=== PATIENT | female | born 1960 | race Caucasian/White ===

== ENCOUNTER → 2016-04-15 | Outpatient (CLI) | payer BC | END | disposition home or self-care (01) | LOC: C.RDSM 14:43 | PROVIDERS: ATTEND Family Medicine Sports Medicine | DX: R20.0 Anesthesia of skin (principal) ==

== ENCOUNTER → 2016-04-21 | Outpatient (CLI) | payer BC | END | disposition home or self-care (01) | LOC: C.PAPS 09:10 | PROVIDERS: ATTEND Obstetrics & Gynecology | DX: Z01.419 Encounter for gynecological examination (general) (routine) without abnormal findings (principal) ==

== ENCOUNTER → 2016-04-21 | Outpatient (CLI) | payer BC ==
--- NOTE | 2016-04-21 14:26 | MAMMOGRAPHY REPORT ---
BILATERAL DIGITAL SCREENING MAMMOGRAM TOMOSYNTHESIS WITH CAD: 04/21/2016 CLINICAL HISTORY: Routine screening. Patient has no complaints. TECHNIQUE: Bilateral breast tomosynthesis in addition to standard 2D mammography was performed. Curr ent study was also evaluated with a Computer Aided Detection (CAD) system. COMPARISON: Comparison is made to exams dated: 03/18/2015 mammogram, 01/28/2010 mammogram - [facility], 12/26/2006, and 07/11/2007. BREAST COMPOSITION: There are scattered areas of fibroglandular density in both breasts. FINDINGS: There is a newly visualized 4.1 mm circumscribed mass in the superior posterior right jeovany ast, only seen on the MLO view and corresponding tomosynthesis images. Although this could represen t a cyst, definitive characterization with exaggerated lateral CC views, possible spot compression v iews and possible ultrasound are recommended. No other suspicious mass, architectural distortion or cluster of microcalcifications is seen bilater ally. IMPRESSION: ACR BI-RADS CATEGORY 0: INCOMPLETE EVALUATION: NEED ADDITIONAL IMAGING EVALUATION The newly visualized 4.1 mm mass in the right superior, posterior breast needs additional evaluation . The patient will be called to schedule an appointment. Approximately 10% of breast cancers are not detected with mammography. A negative mammographic repor t should not delay biopsy if a clinically suggestive mass is present. Keisha Guy M.D. ay/:04/21/2016 10:03:04 Stock Broker Supervisor: Lucho MELCHOR(Peg)(Harry), [facility] letter sent: Addl Imaging 0 BI-RADS Code: ACR BI-RADS Category 0: Incomplete Evaluation: Need Additional Imaging Evaluation
== END | disposition home or self-care (01) ==
LOC: C.MAMM 09:23
PROVIDERS: ATTEND Family Medicine
DX: Z12.31 Encounter for screening mammogram for malignant neoplasm of breast (principal); N63 Unspecified lump in breast

== ENCOUNTER → 2016-04-21 | Outpatient (CLI) | payer BC ==
--- NOTE | 2016-04-21 09:47 | DIAGNOSTIC IMAGING REPORT ---
CERVICAL SPINE MRI HISTORY: Pain. Radiculopathy. M47.812,M54.12 TECHNIQUE: Multiplanar multisequence MRI of the cervical spine was performed without the use of contrast. COMPARISON STUDY: 08/13/2005 FINDINGS: Moderate degenerative disc change throughout the entire cervical region. Signal characteristics of the vertebral bodies are unremarkable. Mild reversal of normal cervical curvature. C2-C3: No significant central canal or neural foraminal narrowing. C3-C4: No significant central canal or neural foraminal narrowing. C4-C5: No significant central canal or neural foraminal narrowing. C5-C6: Minimal disc bulge C6-C7: Mild broad-based disc herniation. Mild impact anterior cervical cord. Mild narrowing neuroforamina bilaterally C7-T1: No significant central canal or neural foraminal narrowing. IMPRESSION: 1. Mild broad-based disc herniation C6-C7. 2. Minimal disc bulge C5-C6. Electronically signed by: Vern Guerrero M.D. 04/21/2016 9:46 AM Dictated Date/Time: 04/21/2016 9:14 AM
== END | disposition home or self-care (01) ==
LOC: C.MRI 08:24
PROVIDERS: ATTEND Family Medicine Sports Medicine
DX: M47.22 Other spondylosis with radiculopathy, cervical region (principal)

== ENCOUNTER → 2016-04-29 | Outpatient (CLI) | payer BC ==
--- NOTE | 2016-04-29 12:48 | MAMMOGRAPHY REPORT ---
UNILATERAL RIGHT DIGITAL DIAGNOSTIC MAMMOGRAM TOMOSYNTHESIS AND TARGETED RIGHT ULTRASOUND: 04/29/2016 CLINICAL HISTORY: Callback from screening mammogram for right breast mass. TECHNIQUE: Breast tomosynthesis in addition to standard 2D mammography was performed. Spot tyrel bebeto right MLO 2-D and tomosynthesis images and right X CCL views were obtained. COMPARISON: Comparison is made to exams dated: 04/21/2016 mammogram, 01/28/2010 mammogram, 03/18/2015 mammogram - [facility], and 12/26/2006. BREAST COMPOSITION: There are scattered areas of fibroglandular density in the right breast. FINDINGS: Spot compression views demonstrate a persistent round 4 mm mass in the right upper outer quadrant far posteriorly, which has obscured margins on the current exam but did have circumscribed margins on the screening mammogram. Targeted ultrasound was performed of the right upper outer quadrant in the region of the mammographi c mass. In the right breast at 9:30, 7 cm from the nipple, there is a round circumscribed hypoechoi c mass with posterior acoustic enhancement which measures 3 x 3 x 3 mm. This corresponds with the m ammographic mass and is probably benign and likely represents a cyst. The mass is likely not comple tely anechoic due to the far posterior location. IMPRESSION: ACR-BI-RADS CATEGORY 3: PROBABLY BENIGN, TARGETED ULTRASOUND ACR-BI-RADS CATEGORY 3: IN OBABLY BENIGN Hypoechoic 3 mm mass in the right breast at 9:30 on ultrasound, which corresponds with the mammograp hic mass and is probably benign and likely represents a cyst. Recommend follow-up diagnostic tomosy nthesis mammograms and possible ultrasound of the right breast in 6 months to confirm stability. The patient has been verbally notified of the results. Approximately 10% of breast cancers are not detected with mammography. A negative mammographic repor t should not delay biopsy if a clinically suggestive mass is present. Farheen Farley M.D. /:04/29/2016 08:44:11 Night Warehouse Selector: Lucho ANDERSON)(Harry), [facility] letter sent: Follow Up Recommended 3 BI-RADS Code: ACR-BI-RADS Category 3: Probably Benign Ultrasound BI-RADS: ACR-BI-RADS Category 3: P robably Benign
== END | disposition home or self-care (01) ==
LOC: C.MAMM 07:55
PROVIDERS: ATTEND Family Medicine
DX: N63 Unspecified lump in breast (principal)

== ENCOUNTER → 2016-10-28 | Outpatient (CLI) | payer BC ==
--- NOTE | 2016-10-28 12:38 | MAMMOGRAPHY REPORT ---
UNILATERAL RIGHT DIGITAL DIAGNOSTIC MAMMOGRAM TOMOSYNTHESIS WITH CAD AND TARGETED RIGHT ULTRASOUND: CLINICAL HISTORY: 6 Month Follow-up Right. TECHNIQUE: Breast tomosynthesis in addition to standard 2D mammography was performed. Current study was also evaluated with a Computer Aided Detection (CAD) system. Right CC and MLO 2-D and tomosynthe sis images and right X CCL tomosynthesis images were obtained. COMPARISON: Comparison is made to exams dated: 04/29/2016 ultrasound, 04/29/2016 mammogram, 04/21/2016 mammogram, 03/18/2015 mammogram, 01/28/2010 mammogram - [facility], and 07/11/2007. BREAST COMPOSITION: The tissue of the right breast is heterogeneously dense, which may obscure small masses. FINDINGS: Again noted is a low density partially circumscribed and partially obscured 5 mm mass in t he right upper outer quadrant, best seen on the tomosynthesis images. The mass does not appear signi ficantly changed compared to the April 2016 exam. The remainder of the right breast is stable mammog raphically compared to prior exams, without suspicious masses, calcifications, or areas of architectu ral distortion noted. Targeted ultrasound was performed of the area of the previously seen mass. In the right breast at 9: 30, approximately 7 cm from the nipple, again noted is a circumscribed hypoechoic mass which measures 2 x 4 x 3 mm, not significantly changed compared to the April 2016 exam when accounting for slight d ifferences in measurement technique, previously measuring 3 x 3 x 3 mm. This is felt to correspond w ith the stable mammographic mass and is probably benign and likely represents a cyst. IMPRESSION: ACR-BI-RADS CATEGORY 3: PROBABLY BENIGN, TARGETED ULTRASOUND ACR-BI-RADS CATEGORY 3: PRO BABLY BENIGN Hypoechoic 4 mm mass in the right 9:30 breast is stable compared to the April 2016 exam and is probab ly benign and may represent a cyst. Recommend bilateral diagnostic tomosynthesis mammograms in 6 mon ths, to reevaluate the right breast mass and for routine mammography of the left breast. The patient has been verbally notified of the results. Approximately 10% of breast cancers are not detected with mammography. A negative mammographic report should not delay biopsy if a clinically suggestive mass is present. Farheen Farley M.D. ah/:10/28/2016 10:11:25 Market Master: Nessa Villarreal RT(R)(M), [facility] letter sent: Follow Up Recommended 3 BI-RADS Code: ACR-BI-RADS Category 3: Probably Benign Ultrasound BI-RADS: ACR-BI-RADS Category 3: Pr obably Benign
== END | disposition home or self-care (01) ==
LOC: C.MAMM 08:30
PROVIDERS: ATTEND Family Medicine
DX: N63 Unspecified lump in breast (principal)

== ENCOUNTER → 2017-04-28 | Outpatient (CLI) | payer OTHER ==
--- NOTE | 2017-04-28 15:09 | MAMMOGRAPHY REPORT ---
BILATERAL DIGITAL DIAGNOSTIC MAMMOGRAM TOMOSYNTHESIS WITH CAD: 04/28/2017 CLINICAL HISTORY: Short interval follow-up of right breast mass. The patient reports no palpable lum ps or other complaints. TECHNIQUE: Breast tomosynthesis in addition to standard 2D mammography was performed. Current study was also evaluated with a Computer Aided Detection (CAD) system. Bilateral CC and MLO 2D and tomosyn thesis images and RXCCL 2D image were obtained. COMPARISON: Comparison is made to exams dated: 10/28/2016 ultrasound, 10/28/2016 mammogram, 04/29/2016 ultrasound, 04/29/2016 mammogram, 04/21/2016 mammogram, and 03/18/2015 mammogram - [facility]. BREAST COMPOSITION: There are scattered areas of fibroglandular density in both breasts. FINDINGS: Again noted is a small round partially circumscribed and partially obscured 5 mm mass withi n the right upper outer quadrant posteriorly, best seen on the tomosynthesis images. The mass is sta ble in size and appearance dating back to the April 2016 exam. This corresponds with a cystic-appear ing circumscribed mass seen on prior ultrasound exams. Given the long-term stability and benign morp hology, the mass is considered benign and likely represents a small cyst. The remainder of both breasts are stable compared to prior exams, without suspicious masses, calcific ations, or areas of architectural distortion noted. IMPRESSION: ACR BI-RADS CATEGORY 2: BENIGN The benign-appearing 5 mm mass within the right upper outer quadrant is stable mammographically datin g back to the April 2016 exam, and is considered benign given the morphology and stability and likely represents a small cyst. There is no mammographic evidence of malignancy in either breast. A 1 year screening mammogram is recommended. The patient has been verbally notified of the results. Approximately 10% of breast cancers are not detected with mammography. A negative mammographic report should not delay biopsy if a clinically suggestive mass is present. Farheen Farley M.D. /:04/28/2017 10:11:45 Continuous Improvement Black Belt: Lucho ANDERSON)(Harry), [facility] letter sent: Normal 1/2 BI-RADS Code: ACR BI-RADS Category 2: Benign
== END | disposition home or self-care (01) ==
LOC: C.MAMM 09:25
PROVIDERS: ATTEND Obstetrics & Gynecology
DX: N63.11 Unspecified lump in the right breast, upper outer quadrant (principal)

== ENCOUNTER 2017-06-09 14:16 | Emergency (ER) | payer OTHER ==
[~2017-06-09] VITALS: Ht 149.9 cm; Wt 72.5 kg
[2017-06-09 14:18] VITALS: TEMP 36.7; Ht 149.9 cm; Wt 72.5 kg
[2017-06-09] MEDS ORDERED: RABIES IMMUNE GLOBULIN (HUMAN) 150 INTER.UNIT/ML 2 ML VIAL IM. ONE (14:45)
[2017-06-09] MEDS ORDERED: RABIES VACCINE (IMOVAX) HUMAN DIPL CELL 2.5 INTER.UNIT/ML SYR IM. ONE (14:45)
[2017-06-09] MEDS ORDERED: ASCO10003 PO (15:01)
[2017-06-09] MEDS ORDERED: OMEG5CAP PO (15:01)
[2017-06-09] MEDS ORDERED: MAGN500T15 PO (15:02)
[2017-06-09] MEDS ORDERED: MULT-506 PO (15:04)
[2017-06-09] MEDS ORDERED: ASPI81TA28 PO (15:04)
[2017-06-09] MEDS ORDERED: NAPR-1169 PO (15:04)
[2017-06-09] MEDS ORDERED: FERR50TA3 PO (15:04)
[2017-06-09] MEDS ORDERED: CYAN10005 PO (15:04)
[2017-06-09 15:44] VITALS: BP 128/74; PULSE 62; O2SAT 98
--- NOTE | 2017-06-10 11:09 | EMERGENCY ROOM VISIT NOTE ---
ED Visit Note First contact with patient: 14:32 Chief Complaint: Squirrel bite. History of Present Illness: Ms. Ramirez is a 57-year-old white female who ambulates into the ED accompanied by her sister complaining of a squirrel bite to the tip of the left middle finger. Patient reports yesterday, approximately 24 hours ago, she was assisting a squirrel by attempting to remove it from a trap and was bit on the tip of the left middle finger. She reports he cleansed the wound yesterday with soap and water. Today was recommended that she come the emergency department for further evaluation and care. She is asymptomatic. She denies any pain in the finger. Review of Systems: As noted above in history of present illness. Past Medical History: Rheumatoid arthritis, status post bunionectomy and trigger finger releases. Current Medications: Medications Dose Route/Sig Max Daily Dose Days Date Category Naprosyn (Naproxen) 500 Mg Tab 500 Tab PO BID 06/09/17 Reported Vitamin B-12 (Cyanocobalamin) 1,000 Mcg Tab 1,000 Mcg PO DAILY 06/09/17 Reported Aspirin Ec (Aspirin) 81 Mg Tab 81 Mg PO DAILY 06/09/17 Reported Multivitamin (Multivitamins) Tab 1 Tab PO DAILY 06/09/17 Reported Iron (Ferrous Sulfate) (Ferrous Sulfate) 50 Mg Tab 1 Tab PO DAILY 06/09/17 Reported Magnesium 500 Mg Tab 1 Cap PO DAILY 06/09/17 Reported Vitamin C (Ascorbic Acid) 1,000 Mg Tab 1 Cap PO DAILY 06/09/17 Reported Fish Oil 1200 mg ([place]-3 Fatty Acids) 1 Cap Cap 1 Cap PO DAILY 06/09/17 Reported Allergies to Medications: Patient denies. Social History: Patient is currently employed; she feels safe in her home environment; she denies tobacco use and admits to alcohol use. Tetanus Immunization Status: Patient reports up-to-date. Physical Examination: Vital Signs: Date Time Temp Pulse Resp B/P (MAP) Pulse Ox O2 Delivery O2 Flow Rate FiO2 06/09/17 15:44 62 17 128/74 98 06/09/17 14:18 36.7 82 18 127/63 95 Room Air GENERAL: 57-year-old female in no acute distress, nontoxic-appearing, afebrile and hemodynamically stable. NEUROLOGICAL: Awake, alert and oriented to person, place and time. Answering questions appropriately and following commands. Normal gait. Good hand eye coordination. No focal motor or sensory deficits. SKIN: Warm, dry and pink. Left Middle Finger: Small bite noted over the tip of the index finger. No active bleeding. No signs of infection. LEFT MIDDLE FINGER: Soft tissue injury as noted above. Patient does have arthritic changes consistent with rheumatoid arthritis at the MCP and the PIP joints. There is no gross bony deformity. She is able to flex and extend all joints. Throughout the finger the skin was warm and pink and capillary refill was brisk. She is able to distinguish light sensations to all dermatomes. ED Course: Patient is assessed as noted above. Patient's medication list was reviewed. Patient was given 1450 units of rabies immunoglobulin IM and 2.5 units of rabies immunization IM. Patient was observed and had no reactions to the medications. Patient was educated about today's findings and instructed on her treatment plan ; she verbalized understanding and agreement with this plan. Clinical Impression: Squirrel bite. His rabies immunizations. Disposition: Patient discharged home in stable condition accompanied by her sister; prior to departure she was reassessed and subjectively reported she was feeling well and had no complaints. Plan: Patient was educated on signs of rabies and symptoms related to reactions or allergic reactions to immunoglobulin and immunization to rabies. Patient was encouraged to return on day 3, 7 and 14 for additional immunizations. Patient was encouraged to use simple therapies for mild symptoms. Patient was encouraged to return to the ED for any significant allergic reactions or moderate relaxants related to her immunizations or any new/ concerning symptoms
== END 2017-06-09 15:47 | disposition home or self-care (01) ==
LOC: C.EDB 14:17 → C.EDD 15:47
DX: S61.253A Open bite of left middle finger without damage to nail, initial encounter (principal); W53.21XA Bitten by squirrel, initial encounter; M06.9 Rheumatoid arthritis, unspecified; Z79.82 Long term (current) use of aspirin; Z79.899 Other long term (current) drug therapy

== ENCOUNTER 2017-06-12 09:52 | Emergency (ER) | payer OTHER ==
[~2017-06-12] VITALS: Ht 152.4 cm; Wt 72.4 kg
[~2017-06-12 09:52] MED LIST: ASCO10003 PO; ASPI81TA28 PO; CYAN10005 PO; FERR50TA3 PO; MAGN500T15 PO; MULT-506 PO; NAPR-1169 PO; OMEG5CAP PO
[2017-06-12 09:54] VITALS: TEMP 36.6; Ht 152.4 cm; Wt 72.4 kg
[2017-06-12] MEDS ORDERED: RABIES VACCINE (IMOVAX) HUMAN DIPL CELL 2.5 INTER.UNIT/ML SYR IM. ONE (10:15)
[2017-06-12 10:37] VITALS: BP 140/80; PULSE 75; O2SAT 97
--- NOTE | 2017-06-12 16:19 | EMERGENCY ROOM VISIT NOTE ---
History Report prepared by Danis: Ashley Campbell Under the Supervision of: Dr. Antonio Vinson M.D. First contact with patient: 10:00 Chief Complaint: RABIES VACCINE REPEAT VISIT Stated Complaint: 2ND RABIES SHOT History of Present Illness The patient is a 57 year old female who presents to the Emergency Room for her 2nd rabies vaccine. The patient received her first rabies vaccine 2 days ago after being "nipped" by a squirrel while trying to free it from a glue trap. She has returned for her 2nd shot as directed. She has no complaints. Source of History: patient Onset: 2 days ago Quality: other (rabies vaccine) Timing: other (episodic) Review of Systems See HPI for pertinent positives & negatives. A total of 2 systems reviewed and were otherwise negative. Past Medical & Surgical Medical Problems: (1) Rheumatoid arthritis Family History Cancer Diabetes mellitus Heart disease Hypertension Social History Smoking Status: Never Smoker Alcohol Use: occasionally Housing Status: lives alone Occupation Status: employed Current/Historical Medications Scheduled Ascorbic Acid (Vitamin C), 1 CAP PO DAILY Aspirin (Aspirin Ec), 81 MG PO DAILY Cyanocobalamin (Vitamin B-12), 1,000 MCG PO DAILY Ferrous Sulfate (Iron (Ferrous Sulfate)), 1 TAB PO DAILY Magnesium (Magnesium), 1 CAP PO DAILY Multivitamin (Multivitamin), 1 TAB PO DAILY Naproxen (Naprosyn), 500 TAB PO BID [place]-3 Fatty Acids (Fish Oil 1200 mg), 1 CAP PO DAILY Allergies Coded Allergies: No Known Allergies (Unverified , 06/12/17) Physical Exam Vital Signs Date Time Temp Pulse Resp B/P (MAP) Pulse Ox O2 Delivery O2 Flow Rate FiO2 06/12/17 10:37 75 18 140/80 97 06/12/17 09:54 36.6 76 18 136/69 97 Room Air Physical Exam Constitutional: Vital signs reviewed. Musculoskeletal: Tiny puncture wound on the dorsal aspect of the left 3rd digit proximal to the nail without signs of infection. Integumentary: No cellulitis or discharge. Psychiatric: Normal affect. Medical Decision & Procedures Laboratory Results Test 06/12/17 10:15 Bedside Troponin I < 0.030 ng/ml (0-0.045) Laboratory results as reviewed by me. Medications Administered Medications (Trade) Dose Ordered Sig/Benedict Route Start Time Stop Time Status Last Admin Dose Admin Rabies Vaccine Human Diploid Cell (Imovax Rabies) 2.5 interunit ONCE ONCE IM. 06/12/17 10:15 06/12/17 10:16 DC 06/12/17 10:28 2.5 INTERUNIT ED Course 1004: The patient was evaluated in room B3B. A complete history and physical exam was performed. 1010: I reevaluated the patient. Initially, the patient did not necessarily want another vaccine. I reviewed the CDC recommendations and she changed her mind and decided she would continue the series. She verbalized agreement of the treatment plan. She was discharged home. 1015: Imovax Rabies 2.5 interunit IM. Medical Decision This is a 57-year-old female presents for her second rabies vaccination. I did perform a limited focused review of portions of the patient's old chart on the electronic medical record. The patient was seen here on the 3rd after a squirrel bite to the left middle finger. She received rabies immunoglobulin and Imovax. I did evaluate the patient as noted above. Patient was bitten by a squirrel while removing it from a glue trap. It did not display any unusual behavior. Per CDC guidelines rodents such as squirrels are not generally considered active reservoirs for rabies and there have been no reported squirrels to humans. The patient did, however, wish to continue the rabies vaccination process. She was given a Pneumovax here and discharged in good condition. She will return as scheduled for the complete series. Medication Reconcilliation Current Medication List: was personally reviewed by me Blood Pressure Screening Patient's blood pressure: Elevated blood pressure Blood pressure disposition: Elevated BP felt to be situational Impression Primary Impression: Encounter for repeat administration of rabies vaccination Scribe Attestation The scribe's documentation has been prepared under my direct and personally reviewed by me in its entirety. I confirm that the note above accurately reflects all work, treatment, procedures, and medical decision making performed by me. Departure Information Dispostion Home / Self-Care Referrals Rey Tao M.D.(TABITHA) (PCP) Forms HOME CARE DOCUMENTATION FORM, IMPORTANT VISIT INFORMATION, WORK / SCHOOL INSTRUCTIONS Patient Instructions My [facility], Rabies Vaccine suspension for injection Additional Instructions Follow-up with your doctor. Return as scheduled for your other vaccinations on days 7 and 14. Today is day 3.
== END 2017-06-12 10:47 | disposition home or self-care (01) ==
LOC: C.EDB 09:53
DX: Z23 Encounter for immunization (principal); Z20.3 Contact with and (suspected) exposure to rabies

== ENCOUNTER 2017-06-16 08:57 | Emergency (ER) | payer OTHER ==
[~2017-06-16] VITALS: Ht 152.4 cm; Wt 72.5 kg
[2017-06-16 09:02] VITALS: BP 122/66; PULSE 77; TEMP 36.7; O2SAT 97; Ht 152.4 cm; Wt 72.5 kg
[2017-06-16] MEDS ORDERED: GLUCCAP31 PO (09:11)
[2017-06-16] MEDS ORDERED: B-COTAB18 PO (09:11)
[2017-06-16] MEDS ORDERED: RABIES VACCINE (IMOVAX) HUMAN DIPL CELL 2.5 INTER.UNIT/ML SYR IM. ONE (09:15)
--- NOTE | 2017-06-16 09:28 | EMERGENCY ROOM VISIT NOTE ---
ED Visit Note First contact with patient: 09:05 CHIEF COMPLAINT: Rabies prophylaxis HISTORY OF PRESENT ILLNESS: This 57 y/o patient presents to the emergency department for their third rabies shot. The patient has not had any complications from the previous injections. They deny any other complaints. The patient wants me to be aware that she does not need rabies vaccination series for a squirrel bite. I concurred with her. She does wish to finish the vaccination series. REVIEW OF SYSTEMS: A 6 system review of systems was completed with positives and pertinent negatives listed in the HPI. ALLERGIES: NKDA MEDICATIONS: See nursing notes PMH: Unchanged from previous visit. PHYSICAL EXAM: Vital Signs: Reviewed Nurse's notes, vital signs stable. GENERAL : 57 y/o, in no acute distress, well-developed, well-nourished. HEAD: Atraumatic, without temporal or scalp tenderness. EYES: PERRLA, EOMI, no discharge or injection. SKIN: Normal. NEUROLOGICAL: Alert and cooperative. Sensory and motor functions grossly intact. EMERGENCY DEPARTMENT COURSE: I examined the patient. The patient was given Imovax 1ml IM. The patient was observed for 20 minutes with no reaction. The patient was discharged home in stable condition. DIAGNOSIS: Rabies prophylaxis DISCHARGE INSTRUCTIONS: Continue vaccination schedule as directed. Return for any complications. Problem List Medical Problems: (1) Rheumatoid arthritis Status: Chronic Current/Historical Medications Scheduled Ascorbic Acid (Vitamin C), 1 CAP PO DAILY Aspirin (Aspirin Ec), 81 MG PO DAILY B-Complex Vitamins (Vitamin B Complex), 1 TAB PO DAILY Ferrous Sulfate (Iron (Ferrous Sulfate)), 1 TAB PO DAILY Glucosamine Sulfate-Methylsulf (Msm/Glucosamine), 1 CAP PO BID Magnesium (Magnesium), 1 CAP PO DAILY Multivitamin (Multivitamin), 1 TAB PO DAILY Naproxen (Naprosyn), 500 TAB PO BID [place]-3 Fatty Acids (Fish Oil 1200 mg), 1 CAP PO DAILY Allergies Coded Allergies: No Known Allergies (Unverified , 06/16/17) Vital Signs Date Time Temp Pulse Resp B/P (MAP) Pulse Ox O2 Delivery O2 Flow Rate FiO2 06/16/17 09:02 36.7 77 18 122/66 97 Room Air Medications Administered Medications (Trade) Dose Ordered Sig/Benedict Route Start Time Stop Time Status Last Admin Dose Admin Rabies Vaccine Human Diploid Cell (Imovax Rabies) 2.5 interunit ONCE ONCE IM. 06/16/17 09:15 06/16/17 09:16 DC 06/16/17 09:17 2.5 INTERUNIT Departure Information Impression Primary Impression: Encounter for repeat administration of rabies vaccination Dispostion Home / Self-Care Condition GOOD Referrals Rey Tao M.D.(TABITHA) (PCP) Forms WORK / SCHOOL INSTRUCTIONS, HOME CARE DOCUMENTATION FORM, IMPORTANT VISIT INFORMATION Patient Instructions My [facility] Additional Instructions Return in one week for rabies You have been examined and treated today on an emergency basis only. This is not a substitute for, or an effort to provide, complete comprehensive medical care. It is impossible to recognize and treat all injuries or illnesses in a single emergency department visit. It is therefore important that you follow up closely with Dr Tao. Call as soon as possible for an appointment. Thank you for your time and consideration. I look forward to speaking with you again soon. Please don't hesitate to call us if you have any questions.
== END 2017-06-16 09:38 | disposition home or self-care (01) ==
LOC: C.EDB 08:58 → C.EDA 09:38
DX: Z20.3 Contact with and (suspected) exposure to rabies (principal); Z23 Encounter for immunization; M06.9 Rheumatoid arthritis, unspecified; Z79.82 Long term (current) use of aspirin; Z79.899 Other long term (current) drug therapy

== ENCOUNTER 2017-06-23 08:59 | Emergency (ER) | payer OTHER ==
[~2017-06-23] VITALS: Ht 149.9 cm; Wt 71.7 kg
[~2017-06-23 08:59] MED LIST changes: +B-COTAB18 PO; -CYAN10005 PO; +GLUCCAP31 PO
[2017-06-23 09:09] VITALS: BP 131/72; PULSE 90; TEMP 36.7; O2SAT 98; Ht 149.9 cm; Wt 71.7 kg
[2017-06-23] MEDS ORDERED: RABIES VACCINE (IMOVAX) HUMAN DIPL CELL 2.5 INTER.UNIT/ML SYR IM. ONE (09:30)
--- NOTE | 2017-06-23 15:15 | EMERGENCY ROOM VISIT NOTE ---
History First contact with patient: :16 Chief Complaint: RABIES VACCINE REPEAT VISIT Stated Complaint: LAST OF RABIES SHOTS History of Present Illness The patient is a 57 year old female who presents to the Emergency Room for her final Imovax injection. The patient was bitten on the left third finger by a squirrel. She denies any wound complications or adverse side effects from her previous injections. Review of Systems 6 system review was performed and was negative except for pertinent positives and negatives as indicated in history of present illness Past Medical/Surgical History Medical Problems: (1) Rheumatoid arthritis Family History Cancer Diabetes mellitus Heart disease Hypertension Social History Smoking Status: Never Smoker Alcohol Use: occasionally Housing Status: lives alone Occupation Status: employed Current/Historical Medications Scheduled Ascorbic Acid (Vitamin C), 1 CAP PO DAILY Aspirin (Aspirin Ec), 81 MG PO DAILY B-Complex Vitamins (Vitamin B Complex), 1 TAB PO DAILY Ferrous Sulfate (Iron (Ferrous Sulfate)), 1 TAB PO DAILY Glucosamine Sulfate-Methylsulf (Msm/Glucosamine), 1 CAP PO BID Magnesium (Magnesium), 1 CAP PO DAILY Multivitamin (Multivitamin), 1 TAB PO DAILY Naproxen (Naprosyn), 500 TAB PO BID Chili-3 Fatty Acids (Fish Oil 1200 mg), 1 CAP PO DAILY Physical Exam Vital Signs Date Time Temp Pulse Resp B/P (MAP) Pulse Ox O2 Delivery O2 Flow Rate FiO2 06/23/17 09:09 36.7 90 20 131/72 98 Room Air Physical Exam CONSTITUTIONAL: Healthy and well nourished. HEENT: Normocephalic, atraumatic. Pupils equal, round and reactive. NECK: Full active range of motion without discomfort. MUSCULOSKELETAL: Examination of the left third fingertip shows a well-healing injury without erythema, fluctuance or ecchymosis. INTEGUMENTARY: No rash or other significant dermatologic conditions noted. NEUROLOGIC: Left third fingertip is sensory intact. Medical Decision & Procedures Medications Administered Medications (Trade) Dose Ordered Sig/Benedict Route Start Time Stop Time Status Last Admin Dose Admin Rabies Vaccine Human Diploid Cell (Imovax Rabies) 2.5 interunit ONCE ONCE IM. 06/23/17 09:30 06/23/17 09:31 DC 06/23/17 09:51 2.5 INTERUNIT ED Course Patient history and physical exam were performed. Nurse's notes were reviewed. Vital signs were reviewed and were normal. The patient received Imovax without adverse reaction. The patient was advised that if she has any potential rabies exposure in the future, she should advise her health care provider that she has already undergone this immunization series. The patient was happy with plan of care, and denied any discomfort at the time of discharge. Medical Decision Medication Reconcilliation Current Medication List: was personally reviewed by me Blood Pressure Screening Patient's blood pressure: Normal blood pressure Impression Primary Impression: Rabies, need for prophylactic vaccination against Departure Information Dispostion Home / Self-Care Condition FAIR Forms HOME CARE DOCUMENTATION FORM, IMPORTANT VISIT INFORMATION Patient Instructions My [facility] Additional Instructions If you have any potential rabies exposure in the future, advise your healthcare provider that you have already undergone this immunization series. You have received the human rabies immunoglobulin (HRIG) which is based on weight (given on the initial day), and Imovax immunization (given at all visits) .
== END 2017-06-23 10:06 | disposition home or self-care (01) ==
LOC: C.EDB 09:00
DX: Z20.3 Contact with and (suspected) exposure to rabies (principal); Z23 Encounter for immunization; M06.9 Rheumatoid arthritis, unspecified; Z79.82 Long term (current) use of aspirin; Z79.899 Other long term (current) drug therapy

== ENCOUNTER 2023-02-03 12:03 | Observation (INO) ==
--- NOTE | 2023-02-02 07:46 | History & Physical Report ---
Date of Service February 02, 2023 Assessment & Plan (1) Closed right humeral fracture: We will proceed with an open reduction internal fixation of the right humerus. Postoperatively she will be placed in a sling and kept overnight in the hospital for postop medical management. She will likely be discharged to home the following day. History of Present Illness Chief Complaint: Right humeral shaft fracture. Primary Care Provider: Christiano Allen DO Arenas is a pleasant 62-year-old female who I did a right shoulder arthroscopy on in the past. She is doing well with that. Unfortunately she tripped and fell on January 29, 2023. She fell directly onto her right shoulder. She was having severe right shoulder pain. She went to the emergency room and radiographs demonstrated a right humeral shaft fracture. She was placed in a sling and sent to their office. After discussions in the office, she has elected to proceed with an open reduction internal fixation of the right humeral shaft. Allergies Allergy/AdvReac Type Severity Reaction Status Date / Time No Known Allergies Allergy Verified 02/01/23 15:14 Home Medications Medication Instructions Recorded Confirmed Type Lactobacillus acidophilus 10 10,000 mmu cells PO QAM 01/26/21 02/01/23 History billion cell capsule (Probiotic) cholecalciferol (vitamin D3) 50 50 mcg PO QAM 01/26/21 02/01/23 History mcg (2,000 unit) tablet (Vitamin D3) folic acid 1 mg tablet 2 mg PO QAM 01/26/21 02/01/23 History hydroxychloroquine 200 mg tablet 200 mg PO QAM 01/26/21 02/01/23 History (Plaquenil) metformin 500 mg tablet 500 mg PO QAM 01/26/21 02/01/23 History tofacitinib 11 mg tablet,extended 11 mg PO QAM 01/26/21 02/01/23 History release 24 hr (Xeljanz XR) turmeric 400 mg capsule 400 mg PO QAM 01/26/21 02/01/23 History vitamin B complex 1 tab PO QAM 01/26/21 02/01/23 History vitamin E 200 unit tablet 200 mg PO HS 01/26/21 02/01/23 History zinc 50 mg capsule 50 mg PO QAM 01/26/21 02/01/23 History magnesium 1 mg PO QAM 11/24/22 02/01/23 History oxycodone 5 mg tablet 5 mg PO Q4H PRN pain #15 tabs 01/30/23 02/01/23 Rx ascorbic acid (vitamin C) 1,000 mg 1 g PO Q6H 02/01/23 02/01/23 History tablet (Vitamin C) bupropion HCl 100 mg tablet 100 mg PO QAM 02/01/23 02/01/23 History ferrous sulfate 325 mg (65 mg 325 mg PO UD 02/01/23 02/01/23 History iron) tablet (Iron (ferrous sulfate)) milk thistle 150 mg capsule 150 mg PO QAM 02/01/23 02/01/23 History omega-3 fatty acids 1,000 mg PO DAILY 02/01/23 02/01/23 History oxycodone 5 mg tablet 5 mg PO Q6 PRN pain #10 tabs 02/01/23 02/01/23 Rx Past Med/Surg History Medical History Prediabetes on metformin Postmenopausal Restless leg syndrome Rheumatoid arthritis Surgical History H/O shoulder surgery Family history of reaction to anesthesia BROTHER>SLEEP APNEA>NEEDED "REVIVED" H/O hand surgery LEFT HAND TENDON REPAIR H/O foot surgery X 3 (BUNION REPAIRS) History of colonoscopy History of conization of cervix [place] teeth removed Family History Father Family history of diabetes mellitus Family history of esophageal cancer Mother COPD (chronic obstructive pulmonary disease) Atrial fibrillation Denies family history of Ovarian cancer Breast cancer Colorectal cancer Social History Smoking Status: Former smoker Tobacco Type: Cigarettes Smoking End Date: 09/06/2022; Second Hand Exposure: No; Do You Dip or Chew Tobacco: No; Tobacco Cessation Education Requested by Patient: No Hx Alcohol Use: Yes Hx Substance Use: No Preferred Language: Slovak Communication Ability: Effective Keyboard Action Assembler Required: No Beliefs That Will Affect Care: None Current Living Situation: Alone Other Information That Helps Us Care for You: No Feels Safe at Home: Yes Safety Concerns: Feels Safe At This Time Assistive Devices: Glasses Review of Systems All systems reviewed & are unremarkable except as noted in HPI & below. Physical Exam On physical examination of the right arm, she is in a coaptation splint. She has motion of her hand and her wrist. She does have some shooting pains into her hand but no numbness. I am unable to do any range of motion testing with her upper extremity.. Constitutional WD/WN, vitals as above Eyes PERRL, conjunctivae normal, anicteric sclerae ENMT external ear and nose normal, oropharynx normal Neck trachea midline, no thyromegaly Respiratory normal respiratory effort Cardiovascular RRR, no murmur, no edema Gastrointestinal (Abdomen) normal bowel sounds, soft, nontender, no hepatosplenomegaly Psychiatric A+Ox3, euthymic affect Results & Data Results & Data Laboratory Results . Diagnostic Findings X-rays of the right shoulder show a transverse fracture of the upper third of the humeral shaft. It does splinter and extended proximally towards the tuberosity.. PG Care Time/CCT Total # of Minutes Spent Total Time Spent with Patient: Total time spent is greater than 50% in coordination of care (as documented) at patient's floor/unit and/or counseling patient: Coding Level of Care Code None Diagnoses Closed right humeral fracture S42.301A
--- NOTE | 2023-02-02 10:51 | Anesthesiology Consultation ---
Date of Service February 02, 2023 Assessment & Plan (1) Encounter for pre-operative examination: Plan - check BSG, CBC with diff, CMP, coags, EKG and CXR STAT am DOS. - Pre-op testing not completed, plan to complete DOS. Per Stormy with surgeon's office, CBC, CMP, coags and EKG are needed from surgical standpoint. Will obtain CBC with diff and CXR from anesthesia standpoint. - ER [facility] 01/29/23: "...stumbled and fell, striking her right shoulder on the wall and then landing on the medial aspect of her left hand and right shoulder on the ground. She states she also struck the right cheek on the concrete, but denies true head injury, loss of consciousness, numbness, tingling, weakness, nausea, or vomiting. The patient is unable to move the right arm due to the pain. She states "it feels like it is not attached, but I can move my hand and wrist"...consult with Dr. Sanford,...He did request that she be placed in an arm sling and provided with analgesics with outpatient follow-up this week with either him or Dr. Garza..." - Per nut tightener on 02/01/2023: Mild cold symptoms 3 weeks ago, multiple negative home COVID tests, no current infectious disease symptoms per PAT RN discussion with patient. Acceptable to proceed pending anesthesiologist evaluation am DOS. Chart Review Chart Review: Acceptable Risk for Surgery (pending DOS testing and anesthesiologist evaluation) and Patient NOT seen in Pre Admission Testing History Surgery Operation Date: 02/03/23 14:00 Proposed Procedures p Open Reduction Internal Fixation Right Humerus Fracture - Alex Garza DO Height/Weight Height: 4 ft 11.5 in Weight: 63.049 kg Allergies Allergy/AdvReac Type Severity Reaction Status Date / Time No Known Allergies Allergy Verified 02/01/23 15:14 Medications Home Medications Medication Instructions Recorded Confirmed Last Taken Lactobacillus acidophilus 10 10,000 mmu cells PO QAM 01/26/21 02/01/23 02/04/21 billion cell capsule (Probiotic) cholecalciferol (vitamin D3) 50 50 mcg PO QAM 01/26/21 02/01/23 02/04/21 mcg (2,000 unit) tablet (Vitamin D3) folic acid 1 mg tablet 2 mg PO QAM 01/26/21 02/01/23 02/04/21 hydroxychloroquine 200 mg tablet 200 mg PO QAM 01/26/21 02/01/23 02/05/21 07:45 (Plaquenil) metformin 500 mg tablet 500 mg PO QAM 01/26/21 02/01/23 02/04/21 tofacitinib 11 mg tablet,extended 11 mg PO QAM 01/26/21 02/01/23 02/04/21 release 24 hr (Xeljanz XR) turmeric 400 mg capsule 400 mg PO QAM 01/26/21 02/01/23 02/04/21 vitamin B complex 1 tab PO QAM 01/26/21 02/01/23 02/04/21 vitamin E 200 unit tablet 200 mg PO HS 01/26/21 02/01/23 02/04/21 zinc 50 mg capsule 50 mg PO QAM 01/26/21 02/01/23 02/04/21 magnesium 1 mg PO QAM 11/24/22 02/01/23 Unknown oxycodone 5 mg tablet 5 mg PO Q4H PRN pain #15 tabs 01/30/23 02/01/23 Unknown ascorbic acid (vitamin C) 1,000 mg 1 g PO Q6H 02/01/23 02/01/23 Unknown tablet (Vitamin C) bupropion HCl 100 mg tablet 100 mg PO QAM 02/01/23 02/01/23 Unknown ferrous sulfate 325 mg (65 mg 325 mg PO UD 02/01/23 02/01/23 Unknown iron) tablet (Iron (ferrous sulfate)) milk thistle 150 mg capsule 150 mg PO QAM 02/01/23 02/01/23 Unknown omega-3 fatty acids 1,000 mg PO DAILY 02/01/23 02/01/23 Unknown oxycodone 5 mg tablet 5 mg PO Q6 PRN pain #10 tabs 02/01/23 02/01/23 Unknown Past Medical History Medical History Prediabetes on metformin Postmenopausal Restless leg syndrome Rheumatoid arthritis Past Family History Family History Father Family history of diabetes mellitus Family history of esophageal cancer Mother COPD (chronic obstructive pulmonary disease) Atrial fibrillation Denies family history of Ovarian cancer Breast cancer Colorectal cancer Past Surgical History Surgical History H/O shoulder surgery Family history of reaction to anesthesia BROTHER>SLEEP APNEA>NEEDED "REVIVED" H/O hand surgery LEFT HAND TENDON REPAIR H/O foot surgery X 3 (BUNION REPAIRS) History of colonoscopy History of conization of cervix [place] teeth removed Social History Smoking Status: Former smoker Do You Dip or Chew Tobacco: No Smoking End Date: 09/06/2022 Hx Alcohol Use: Yes alcohol intake frequency: a few times a month Hx Substance Use: No substance use type: does not use Testing Other Testing Hand CT 01/29/23 Nondisplaced acute fracture to the distal aspect of the fifth metacarpal. Dislocations of the second through fifth metacarpophalangeal joints.
[~2023-02-03 12:03] MED LIST changes: -ASCO10003 PO; -ASPI81TA28 PO; -B-COTAB18 PO; -FERR50TA3 PO; -GLUCCAP31 PO; +LR 60ML/HR IV SCH; -MAGN500T15 PO; -MULT-506 PO; -NAPR-1169 PO; -OMEG5CAP PO; +ceFAZolin 2000MG 2,000 MG/15 ML SYR IV SCH
[2023-02-03] MEDS ORDERED: PROPOFOL IV EMULSION 10 MG/ML 20 ML VIAL IV ONE ×2 (12:34→16:25)
[2023-02-03] MEDS ORDERED: LIDOCAINE 2% 2 ML VIAL/AMP(20MG/ML) INFIL ONE ×2 (12:34→12:35)
[2023-02-03] MEDS ORDERED: ONDANSETRON INJ 2 MG/ML 2 ML VIAL ONE (12:34)
[2023-02-03] MEDS ORDERED: DEXAMETHASONE SOD INJ 4 MG/ML VIAL ONE (12:34)
[2023-02-03] MEDS ORDERED: MIDAZOLAM HCL 1 MG/ML 2ML VIAL ONE ×2 (12:35→16:15)
[2023-02-03] MEDS ORDERED: fentaNYL citrate PF 100 MCG/2 ML VIAL ONE ×2 (12:35→16:52)
[2023-02-03 12:53] LABS: Basophils # (auto) 0.02 K/uL (0.00-0.20); Basophils % (auto) 0.2 %; Eosinophils # (auto) 0.04 K/uL (0.00-0.50); Eosinophils % (auto) 0.5 %; Hematocrit (blood only) 37.9 % (37.0-47.0); Hemoglobin 12.9 g/dl (12.0-16.0); Immature Granulocytes # (auto) 0.03 K/uL (0.01-0.20); Immature Granulocytes % (auto) 0.4 %; Lymphocytes # (auto) 1.04 K/uL (1.20-3.40); Lymphocytes % (auto) 12.7 %; Mean Corpuscular Hemoglobin 31.2 pg (25.0-34.0); Mean Corpuscular Volume 91.5 fL (80.0-100.0); Monocytes # (auto) 0.81 K/uL (0.11-0.59); Monocytes % (auto) 9.9 %; Neutrophils # (auto) 6.22 K/uL (1.40-6.50); Neutrophils % (auto) 76.3 %; Platelet Count 204 K/uL (130-400); RDW Standard Deviation 40.3 fL (36.4-46.3); Red Blood Count 4.14 M/uL (4.20-5.40); White Blood Count 8.16 K/ul (4.8-10.8)
[2023-02-03 13:01] LABS: Albumin Globulin Ratio 1.6 (0.9-2); Albumin Level 4.1 gm/dl (3.4-5.0); BUN Creatinine Ratio 22.7 (10-20); Bilirubin,Total 0.8 mg/dl (0.2-1.0); Calcium 9.1 mg/dl (8.6-10.3); Creatinine Clr Calc Pharmacy 70.5 ml/min; Est GFR (African American) 108.2 ml/min; Est GFR (Non-African American) 93.4 ml/min; Globulin 2.5 gm/dl (2.5-4.0); Potassium 4.2 mmol/L (3.5-5.1); Total Protein 6.6 gm/dl (6.0-8.3)
[2023-02-03 13:19] LABS: INR 1.1 (0.9-1.1); Partial Thromboplastin Ratio 0.9; Partial Thromboplastin Time 26 Seconds (21-31); Prothrombin Time 11.8 Seconds (9.0-12.0)
[2023-02-03] MEDS ORDERED: LACTATED RINGER'S 1,000 ML IV SCH (13:30)
[2023-02-03] MEDS ORDERED: ROPIVACAINE 0.5% 5 MG/ML 30 ML VIAL ONE (13:41)
--- NOTE | 2023-02-03 14:45 | History & Physical Bridge Note ---
Date of Service February 03, 2023 History & Physical Bridge Note I have examined the patient, reviewed the History & Physical and in the interval since the performance of the History & Physical I have noted the following changes of clinical significance: no changes noted
[2023-02-03] MEDS ORDERED: BUPIVACAINE 0.5 % 5 MG/1 ML PF 10ML VIAL ONE (15:20)
[2023-02-03] MEDS ORDERED: BUPIVACAINE/EPINEPHRINE 0.5% MPF 1:200,000 30 ML VIAL ONE (15:27)
[2023-02-03] MEDS ORDERED: KETOROLAC 30 MG/ML VIAL ONE (16:40)
--- NOTE | 2023-02-03 18:02 | Fluoroscopy Report ---
FL humerus RT 2V CLINICAL HISTORY: RIGHT HUMERUS ORIFacute fracture of the right humerus COMPARISON STUDY: 01/29/2023 FLUOROSCOPY TIME: 32.4 seconds FLUOROSCOPY IMAGES: 2 EXPOSURE DOSE: 0.9631 mGy FINDINGS: Status post placement of plate and screw fusion hardware fixating the acute and comminuted proximal humeral diaphyseal fracture. There is improved alignment with mild persistent displacement. Expected postoperative soft tissue swelling with deep tissue air. IMPRESSION: Fluoroscopic assistance of the above. ACT 112: Negative or not required by law. Electronically signed by: Elia Qureshi M.D. 02/03/2023 6:01 PM
--- NOTE | 2023-02-03 18:03 | Operative Report ---
PG Post Operative Report Pre & Post Diagnosis Operation Date: 02/03/23 14:00 Pre-Op Diagnosis: Displaced Right Humerus Fracture Post-Op Diagnosis: Displaced Right Humerus Fracture I identified the patient and participated in the time-out.: Yes Procedure Operation Date: 02/03/23 14:00 Actual Procedures p Open Reduction Internal Fixation Right Humerus Fracture(Right) - Alex Garza DO Surgeon Alex Garza DO [place] Jai Carpenter PA-C Estimated Blood Loss 150 Findings Consistent with Post-Op Diagnosis Specimens None Description of Procedure Implants used: I used a Synthes 6-hole proximal humeral locking plate. On February 03, 2023 Dagoberto arrived at [facility] for the above procedure. She was seen in the preoperative holding area and the operative extremity was identified and signed. She was given a preoperative antibiotic and a right interscalene nerve block. She was taken back to the operating room and laid on the table in supine position. She was put under general anesthesia. She was put into the beachchair position. The right shoulder was prepped and draped in sterile fashion. A timeout was done. The patient and the operative extremity was properly identified. An extended anterior approach was used. Dissection was taken down through the deltopectoral interval and distally through the brachialis. Care was taken to control hemostasis. Care was taken not to disrupt the musculocutaneous or the radial nerves. The fracture was exposed and it was a very comminuted fracture. It was comminuted both proximally and distally. An Arthrex cerclage wire was placed proximally to hold the comminuted proximal fracture in place while I was able to reduce the main segments. The fracture was then reduced with clamps. Fluoroscopic images were used to ensure appropriate reduction of the fracture. A Synthes 6-hole proximal humeral locking plate was placed. A compression screw was placed just proximal to the fracture site to hold the plate to the bone. A second compression screw was placed distally. I was happy with the overall alignment of the plate. The fracture was very comminuted and I was happy with the overall alignment. Locking screws were then placed both proximally and distally. Length of the screws were checked on orthogonal fluoroscopic images. The wounds were then irrigated. Final fluoroscopic images showed good alignment of the fracture and appropriate placement of the hardware. The deep deltopectoral interval was closed with 2-0 Vicryl suture. Skin was closed with 2-0 Vicryl and cong. She was then placed in a Silverlon dressing and a regular arm sling. She was then extubated and transferred to a hospital bed. She was taken to the postanesthesia care unit in stable condition. She tolerated the procedure well. Jai Carpenter PA-C, was present for the entire procedure. He was critical for patient positioning, prepping, draping, retraction exposure, wound closure and application of sterile dressing. I attest to the content of the Intraoperative Record and any orders documented therein. Any exceptions are noted below.
--- NOTE | 2023-02-03 18:49 | XRay Report ---
XR shoulder RT min 2V routine HISTORY: 62 years-old Female Post shoulder surgery polyps. Patient with a right humeral fracture COMPARISON: 01/29/2023 TECHNIQUE: 2 views of the right humerus FINDINGS: Status post placement of plate and screw fusion hardware fixating the acute and comminuted proximal h umeral diaphyseal fracture. There is improved alignment status post surgery however there is persiste nt apex medial angulation with medial displacement of 9 mm. Overlying skin cong. Expected postoper ative soft tissue swelling with deep tissue air. IMPRESSION: Improved alignment of the acute proximal humeral diaphyseal fracture status post ORIF wit h mild persistent displacement and angulation. ACT 112: Negative or not required by law. The above report was generated using voice recognition software. It may contain grammatical, syntax o r spelling errors. Electronically signed by: Elia Qureshi M.D. 02/03/2023 6:48 PM
[2023-02-03] MEDS ORDERED: KETOROLAC 30 MG/ML VIAL IV PRN (18:50)
[2023-02-03] MEDS ORDERED: ONDANSETRON INJ 2 MG/ML 2 ML VIAL IV PRN ×2 (18:50→20:23)
[2023-02-03] MEDS ORDERED: ATROPINE SULFATE 0.1 MG/ML 10ML SYR IV PRN (18:50)
[2023-02-03] MEDS: fentaNYL citrate PF 100 MCG/2 ML VIAL IV PRN ×2 (18:55→19:00)
--- NOTE | 2023-02-03 19:26 | Anesthesiology Progress Note ---
Date of Service February 03, 2023 Anesthesia Post Procedure Vital Signs Vital Signs: Temp Pulse Pulse Resp BP Pulse Ox O2 Del Method 02/03/23 19:15 36.7 C 72 22 131/72 99 Room Air 02/03/23 19:05 58 L 14 134/67 99 Oxymask 02/03/23 18:55 64 12 142/68 H 100 Oxymask 02/03/23 18:45 70 12 129/73 98 Oxymask 02/03/23 18:35 68 14 145/78 H 100 Oxymask 02/03/23 18:25 36.1 C L 80 16 142/71 H 98 Oxymask 02/03/23 13:04 36.8 C 88 20 135/64 98 Room Air O2 Flow Rate 02/03/23 19:15 02/03/23 19:05 2 02/03/23 18:55 2 02/03/23 18:45 6 02/03/23 18:35 6 02/03/23 18:25 6 02/03/23 13:04 Pain Intensity Right Arm: Pain Intensity: 4 Transfer of Care Handoff Completed per policy Notes Mental Status: alert / awake / arousable Patient Amnestic to Procedure: Yes Nausea / Vomiting: adequately controlled Pain: adequately controlled Airway Patency, RR, SpO2: stable & adequate BP & HR: stable & adequate Hydration State: stable & adequate Anesthetic Complications: no major complications apparent
[2023-02-03] MEDS ORDERED: bisacodyL 10 MG SUPP PR PRN (20:23)
[2023-02-03] MEDS ORDERED: MAGNESIUM HYDROXIDE SUSP 30 ML UDC PO PRN (20:23)
[2023-02-03] MEDS ORDERED: METOCLOPRAMIDE HCL INJ 5 MG/ML 2 ML VIAL IV PRN (20:23)
[2023-02-03] MEDS ORDERED: PHARMACY GLYCEMIC MGMT CONSULT PRN (20:23)
[2023-02-03] MEDS ORDERED: oxyCODONE HCL IR 5 MG TAB (IMMEDIATE RELEASE) PO PRN (20:23)
[2023-02-03] MEDS ORDERED: HYDROmorphone INJ 0.5 MG/0.5 ML SYR IV PRN (20:23)
[2023-02-03] MEDS ORDERED: NALOXONE HCL 0.4 MG/1 ML VIAL/CARP IV PRN (20:23)
[2023-02-03] MEDS ORDERED: SODIUM CHLORIDE 0.9% 1,000 ML IV SCH (20:23)
[2023-02-03] MEDS ORDERED: CARBOHYDRATES FOR HYPOGLYCEMIA PO PRN (20:45)
[2023-02-03] MEDS ORDERED: GLUCOSE 10 TAB/TUBE PO PRN (20:45)
[2023-02-03] MEDS ORDERED: GLUCAGON FOR INJ 1 MG VIAL IM PRN (20:45)
[2023-02-03] MEDS ORDERED: DEXTROSE 50% 50 ML SYRINGE IV PRN (20:45)
[2023-02-03] MEDS ORDERED: GLUCOSE 40% GEL 15 GM TUBE PO PRN (20:45)
[2023-02-03] MEDS ORDERED: SENNA 8.6 MG TAB PO SCH (21:00)
[2023-02-03] MEDS: KETOROLAC TROMETHAMINE 15 MG/ML VIAL IV SCH (21:31)
[2023-02-03] MEDS: DOCUSATE SODIUM 100 MG CAP PO SCH (21:33)
[2023-02-03] MEDS: INSULIN ASPART PER UNIT CHARGE SC SCH (21:34)
[2023-02-03] MEDS: ACETAMINOPHEN 500 MG TAB PO SCH (23:00)
[2023-02-03] MEDS: [UNRECOGNIZED DRUG - OTHER] SCH (23:01)
[2023-02-04] MEDS: ceFAZolin 2000MG 2,000 MG/15 ML SYR IV SCH ×2 (00:47→08:21)
[2023-02-04] MEDS: KETOROLAC TROMETHAMINE 15 MG/ML VIAL IV SCH ×2 (02:31→08:22)
[2023-02-04] MEDS: ACETAMINOPHEN 500 MG TAB PO SCH (05:11)
[2023-02-04] MEDS: INSULIN ASPART PER UNIT CHARGE SC SCH (07:52)
[2023-02-04] MEDS: [UNRECOGNIZED DRUG - OTHER] SCH (07:53)
[2023-02-04] MEDS: DOCUSATE SODIUM 100 MG CAP PO SCH (08:22)
[2023-02-04] MEDS ORDERED: buPROPion HCl 100 MG TABLET PO SCH (09:00)
[2023-02-04] MEDS ORDERED: HYDROXYCHLOROQUINE SULFATE 200 MG TAB PO SCH (09:00)
[2023-02-04] MEDS ORDERED: metFORMIN HCL 500 MG TAB PO SCH (09:00)
[2023-02-04] MEDS ORDERED: MULTIVITAMIN TAB PO SCH (09:00)
--- NOTE | 2023-02-04 10:47 | Orthopedic Progress Note ---
Date of Service February 04, 2023 Assessment & Plan (1) Status post shoulder surgery: Overall, she is doing quite well today with good pain control to the right upper extremity. She will work with physical therapy later today to work on range of motion exercises of the right upper extremity. She can be discharged home later today pending physical therapy evaluation. She will follow-up with orthopedics in 2 weeks for postoperative care. Subjective . Dagoberto was seen and evaluated bedside this morning resting comfortably in no apparent distress. She notes that other than some numbness still residing from the block that she had that she is doing quite well today. She has been up and out of bed with no significant issues. She denies any other concerns at this point Review of Systems All systems reviewed & are unremarkable except as noted in HPI & below. Physical Exam . On physical examination of the right upper extremity, dressing is in place, clean, dry, and intact. Sling is in place to the right upper extremity. Slight active range of motion at the elbow, wrist, and all 5 digits. +2 radial pulse. Less than 2-second capillary refill. Neuroexam is limited secondary to nerve block. Results & Data Results & Data Laboratory Results . Diagnostic Findings . Postoperative x-rays of the right humerus show fracture anatomically reduced with plate and screws in place with no signs of other complications. PG Care Time/CCT Total # of Minutes Spent Total Time Spent with Patient: Total time spent is greater than 50% in coordination of care (as documented) at patient's floor/unit and/or counseling patient: Coding Level of Care Code 12901 Post Operative Follow-Up Diagnoses Status post shoulder surgery Z98.890
--- NOTE | 2023-02-04 10:50 | Discharge Summary ---
Date of Service February 04, 2023 Admission HPI (Per Admitting) Dagoberto is a pleasant 62-year-old female who I did a right shoulder arthroscopy on in the past. She is doing well with that. Unfortunately she tripped and fell on January 29, 2023. She fell directly onto her right shoulder. She was having severe right shoulder pain. She went to the emergency room and radiographs demonstrated a right humeral shaft fracture. She was placed in a sling and sent to their office. After discussions in the office, she has elected to proceed with an open reduction internal fixation of the right humeral shaft. Admission Exam (Per Admitting) On physical examination of the right arm, she is in a coaptation splint. She has motion of her hand and her wrist. She does have some shooting pains into her hand but no numbness. I am unable to do any range of motion testing with her upper extremity.. Principal Diagnosis Same as "Discharge Diagnosis" noted below under Discharge Instructions. Discharge Exam . On physical examination of the right upper extremity, dressing is in place, clean, dry, and intact. Sling is in place to the right upper extremity. Slight active range of motion at the elbow, wrist, and all 5 digits. +2 radial pulse. Less than 2-second capillary refill. Neuroexam is limited secondary to nerve block. Discharge Data Procedures Performed Operation Date: 02/03/23 14:00 Actual Procedures p Open Reduction Internal Fixation Right Humerus Fracture(Right) - Alex Garza DO Ordered Studies 02/03/23 FL humerus RT 2V Routine 02/03/23 05:00 US - OR guided needle placemen Routine Hospital Course (1) Status post shoulder surgery: On February 03, 2023 Dagoberto arrived at [facility] and underwent a open reduction internal fixation of right humerus fracture without complications. She had a general anesthetic. Postoperatively, she was transferred to the PACU for immediate postoperative care and then transferred to the general orthopedic floor in stable condition. Her hospital course was uneventful. On postoperative day #1, her vital signs were stable and her pain was well-controlled. She participated well with physical therapy doing range of motion exercises. She was then discharged home in stable condition. She will follow-up with orthopedics in 2 weeks for postoperative care. PG Care Time/CCT Total # of Minutes Spent Total Time Spent with Patient: Total time spent is greater than 50% in coordination of care (as documented) at patient's floor/unit and/or counseling patient: Discharge Plan Discharge Items Patient Disposition: Home - Self-Care Reason For Visit: POST OP Discharge Diagnosis: Right humerus fixation Activity: Per Instructions section Non-emergency contact: Surgeon Call non-emergency contact if: your wound has increased redness and your wound has increased drainage Follow-up/Referrals: Christiano Allen DO [Primary Care Provider] - Diet: Regular Addtl Attending Provider Instructions: ORTHOPEDIC INSTRUCTIONS Activity Recommendations: Stay in your right arm sling at all times. You may use your hand and wrist. You may move your elbow. Medications: Narcotic -take the narcotic as needed for pain Cefadroxil -take the antibiotic twice a day for 10 days to help prevent infection. Dressing Care: Leave the Silverlon dressing in place for 7 days. After the Silverlon dressing is removed, the cong can be open to air as long as the incisions are not draining. If the incisions are draining or if the cong are getting caught on your clothes then please cover the cong with dry gauze. Change the dressings as necessary to keep the incision as dry as possible Showering: You may shower with the Silverlon dressing in place. You may shower after the Silverlon dressing is removed. Do not soak the incision. Things To Watch For: 1. Drainage from the incision site that occurs more than one week after your surgery. 2. Increased redness at the incision site. 3. Fever above 102 degrees Fahrenheit. 4. Unusual chest pain or shortness of breath. 5. Call [facility] at with any of the above problems Follow-Up Visit: Follow-up with Dr. Garza's PA (Alex Al) 2-3 weeks after your day of surgery. He will remove your cong and answer any questions. If you have any additional questions or concerns, Dr Garza is usually in the office at the same time and will be available Please call the office to set up an appointment for a time that works for you. Pending Studies at Discharge: No Stand-Alone Forms: [facility] Medications and DC Order Prescriptions: New oxycodone 5 mg Tablet 5 mg PO Q6 PRN (Reason: pain) Qty: 30 0RF cefadroxil 500 mg capsule 500 mg PO BID 10 Days Qty: 20 0RF Continued magnesium 1 mg PO QAM vitamin B complex Tablet 1 tab PO QAM folic acid 1 mg Tablet 2 mg PO QAM hydroxychloroquine [Plaquenil] 200 mg Tablet 200 mg PO QAM vitamin E 200 unit Tablet 200 mg PO HS cholecalciferol (vitamin D3) [Vitamin D3] 50 mcg (2,000 unit) Tablet 50 mcg PO QAM Probiotic 10 billion cell Capsule 10,000 mmu cells PO QAM Xeljanz XR 11 mg Tablet Extended Release 24 Hr 11 mg PO QAM turmeric 400 mg Capsule 400 mg PO QAM metformin 500 mg Tablet 500 mg PO QAM Patient Comments: "TAKING FOR PREVENTION OF DM" zinc 50 mg Capsule 50 mg PO QAM Patient Comments: UNSURE IF DOSE CORRECT bupropion HCl 100 mg Tablet 100 mg PO QAM milk thistle 150 mg Capsule 150 mg PO QAM Rx Instructions: give with meal/snack ferrous sulfate [Iron (ferrous sulfate)] 325 mg (65 mg iron) Tablet 325 mg PO UD Rx Instructions: every other day omega-3 fatty acids Capsule 1,000 mg PO DAILY ascorbic acid (vitamin C) [Vitamin C] 1,000 mg Tablet 1 g PO Q6H Discontinued oxycodone 5 mg tablet 5 mg PO Q6 PRN (Reason: pain) Qty: 10 0RF oxycodone 5 mg tablet 5 mg PO Q4H PRN (Reason: pain) Qty: 15 0RF Rx Instructions: Initial therapy Discharge Orders: Discharge Order (Routine); Ordered 02/04/23 Ordered By: Elia Carpenter Admission Data Admit Date/Time: 02/03/23 18:29 Attending Provider: Alex Garza Admit Provider: Alex Garza Primary Care Provider: Christiano Allen
== END 2023-02-04 12:27 | disposition home or self-care (01) ==
LOC: 3N 12:03 → ASU 12:03